=== PATIENT | female | born 1990 | race Caucasian/White ===

== ENCOUNTER 2016-12-30 05:32 | Emergency (ER) | payer OTHER ==
[2016-12-30 05:44] VITALS: BP 115/70; PULSE 115; TEMP 102.5; BMI 20.9
[2016-12-30] MEDS ORDERED: OSELTAMIVIR PHOSPHATE 75 MG CAPSULE ONE (05:46)
[2016-12-30] MEDS ORDERED: AZITHROMYCIN 250 MG TABLET (FP) ONE (05:46)
[2016-12-30] MEDS ORDERED: IBUPROFEN 600 MG TABLET (FP) PO ONE ×2 (05:47→05:50)
[2016-12-30] MEDS ORDERED: OSELTAMIVIR PHOSPHATE 75 MG CAPSULE PO ONE (05:50)
[2016-12-30] MEDS ORDERED: AZITHROMYCIN 250 MG TABLET (FP) PO ONE (05:51)
--- NOTE | 2016-12-30 05:54 | PDOC ---
History of Present Illness - General Chief Complaint: Cold Symptoms Stated Complaint: FEVER, RESPIRATORY Time Seen by Provider: 12/30/16 05:36 History Source: Patient Exam Limitations: Language Barrier - History of Present Illness Initial Comments: 12/30/16 05:49 26yo Female patient with history of Asthma presents to ED c/o high fevers, cough , headache, bodyaches, and sore throat. Patient states her daughter was recently diagnosed with flu by repack room worker. Child was prescribed tamiflu and abx. Patient has been using NyQuil and Advil with little relief. LNMP: Current. Patient denies any other complaints at this time. Timing/Duration: reports: week Severity: reports: moderate Possible Cause: Yes: illness exposure Modifying Factors: worse with: activity, albuterol inhaler, albuterol nebulizer , antibiotics, coughing, lying down, oxygen, rest, other Associated Symptoms: reports: cough, fever/chills, muscle aches, nasal congestion, shortness of breath, sore throat Past History - Travel Traveled outside of the country in the last 30 days: No Close contact w/someone who was outside of country & ill: No - Past Medical History Allergies/Adverse Reactions: Allergies Allergy/AdvReac Type Severity Reaction Status Date / Time Penicillins Allergy Mild Rash Verified 12/30/16 05:34 Home Medications: Ambulatory Orders Albuterol Sulfate Inhaler - [Ventolin HFA Inhaler -] 2 inh IH Q4H PRN #1 inh 06/14 Acetaminophen [Tylenol .Regular Strength -] 650 mg PO Q4H PRN #0 tablet Ibuprofen [Motrin -] 600 mg PO Q4H PRN #30 tablet 03/02/15 Azithromycin [Zithromax -] 250 mg PO DAILY #4 tablet 12/30/16 Oseltamivir Phosphate [Tamiflu -] 75 mg PO BID #10 capsule 12/30/16 Asthma: Yes Cancer: No Cardiac Disorders: No Diabetes: No HTN: No Seizures: No Thyroid Disease: No - Reproductive History (#): 1 Para: 0 - Immunization History Immunization Up to Date: Yes - Psycho/Social/Smoking Cessation Hx Anxiety: No Suicidal Ideation: No Smoking History: Never smoked Have you smoked in the past 12 months: No Number of Cigarettes Smoked Daily: 0 Cigars Per Day: 0 Hx Alcohol Use: No Drug/Substance Use Hx: No Substance Use Type: None Hx Substance Use Treatment: No Respiratory Specific PMHX - Complaint Specific PMHX Angina: No Bronchitis: No Pneumonia: No Pulmonary Embolus: No TB (Tuberculosis): No Review of Systems - Review of Systems Able to Perform ROS?: Yes Is the patient limited [place] proficient: Yes Constitutional: Yes: Fever, Malaise. No: Chills HEENTM: Yes: Throat Pain Respiratory: Yes: Cough, Shortness of Breath. No: Orthopnea, Stridor, Wheezing , Productive cough Cardiac (ROS): No: Chest Pain, Lightheadedness, Palpitations, Syncope, Chest Tightness ABD/GI: No: Diarrhea, Nausea, Vomiting : No: Dysuria Musculoskeletal: Yes: Muscle Pain. No: Back Pain Integumentary: No: Bruising, Erythema, Rash Neurological: Yes: Headache. No: Numbness, Paresthesia, Seizure, Tingling, Tremors, Weakness, Unsteady Gait, Ataxia, Dizziness All Other Systems: Reviewed and Negative *Physical Exam - Vital Signs Last Vital Signs Temp Pulse Resp BP Pulse Ox 102.5 F H 115 H 20 115/70 99 12/30/16 05:41 12/30/16 05:41 12/30/16 05:41 12/30/16 05:41 12/30/16 05:41 - Physical Exam General Appearance: Yes: Nourished, Appropriately Dressed. No: Apparent Distress, Mild Distress, Moderate Distress, Severe Distress HEENT: positive: EOMI, ANAHY, Normal ENT Inspection, Normal Voice, Symmetrical, TMs Normal, Pharynx Normal, Pharyngeal Erythema (Mild). negative: Tonsillar Erythema, Nasal Congestion, Rhinorrhea, TM Bulging, TM Dull, TM Erythema Neck: positive: Trachea midline, Supple. negative: Stridor, Lymphadenopathy (R) , Lymphadenopathy (L) Respiratory/Chest: positive: Lungs Clear, Normal Breath Sounds. negative: Chest Tender, Respiratory Distress, Accessory Muscle Use, Labored Respiration, Rapid RR Cardiovascular: positive: Regular Rhythm, Regular Rate. negative: Edema, JVD, Murmur Gastrointestinal/Abdominal: positive: Normal Bowel Sounds, Soft. negative: Distended, Guarding, Rebound, Tenderness Musculoskeletal: positive: Normal Inspection. negative: CVA Tenderness Extremity: positive: Normal Capillary Refill, Normal Inspection, Normal Range of Motion Integumentary: positive: Normal Color, Dry, Warm. 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 Plan: treat for influenza/bronchitis. Start Tamiflu and Z-arnel. D/c home with rest and increase fluids. *DC/Admit/Observation/Transfer Diagnosis at time of Disposition: Influenza, Bronchitis - Discharge Dispostion Disposition: HOME Condition at time of disposition: Stable Admit: No - Prescriptions Prescriptions: Oseltamivir Phosphate [Tamiflu -] 75 mg PO BID #10 capsule Azithromycin [Zithromax -] 250 mg PO DAILY #4 tablet - Patient Instructions Printed Discharge Instructions: Influenza, DI for Acute Bronchitis Additional Instructions: SEGUIMIENTO CON HOBBS MDICO DE ATENCIN PRIMARIA ESTA SEMANA. LLAMAR PARA CALIFICAR LA BRIAN. JETT MEDICAMENTOS AIDAN SE PRESCRIBE. DESCANSAR, BEBER LOTES DE AGUA O GATORADE. REGRESE SI SINTA LOS SNTOMAS. USTED DEBE HACER TRATAMIENTOS NEBULIZADORES CADA 4-6 HORAS AIDAN SE NECESITAN PARA AYUDAR CON TOSTAR Y RESPIRAR. FOLLOW UP WITH YOUR PRIMARY CARE DOCTOR THIS WEEK. CALL TO SCHEDULE APPOINTMENT. TAKE MEDICATIONS PRESCRIBED. REST, DRINK LOTS OF WATER OR GATORADE. RETURN IF SYMPTOMS WORSEN. YOU SHOULD DO NEBULIZER TREATMENTS EVERY 4- 6 HOUR NEEDED TO HELP WITH COUGHING AND BREATHING. Print Language: TRINIDADIAN - Post Discharge Activity Work/School Note: Back to Work
== END 2016-12-30 06:12 | disposition home or self-care (01) ==
LOC: JER 05:32
DX: J11.1 Influenza due to unidentified influenza virus with other respiratory manifestations (principal); J40 Bronchitis, not specified as acute or chronic
CPT/HCPCS: 99281-25

== ENCOUNTER 2018-12-06 17:44 | Emergency (ER) | payer BC, OTHER ==
[2018-12-06 18:11] VITALS: BP 115/71; PULSE 81; TEMP 97.5; BMI 21.4
--- NOTE | 2018-12-06 18:11 | PDOC ---
Rapid Medical Evaluation Time Seen by Provider: 12/06/18 18:08 Medical Evaluation: Allergies Allergy/AdvReac Type Severity Reaction Status Date / Time Penicillins Allergy Mild Rash Verified 12/06/18 18:08 12/06/18 18:09 Pt presents with 2 weeks of R flank pain. Pain is colicky in nature. Also admits to nausea Exam: TTP R flank, NAD Orders: Labs, urine, Iv Pt to proceed to ED for further evaluation Discharge Disposition - Diagnosis Right flank pain - Referrals - Patient Instructions - Post Discharge Activity
--- NOTE | 2018-12-06 19:15 | PDOC ---
Attending Attestation - HPI HPI: 12/06/18 20:31 The patient is a 28 year old female, with a significant past medical history of , who presents to the emergency department with, 2 weeks of intermittent right flank pain radiating to the front with nausea. Patient endorses an associated 2 days of rectal bleeding upon wiping and constipation. She denies recent fevers, chills, headache or dizziness. She denies recent dysuria, frequency, urgency or hematuria. She denies recent chest pain or shortness of breath. Allergies: Penicillins. - Physicial Exam PE: 12/06/18 20:32 Agree with resident exam. - Medical Decision Making 12/06/18 23:19 EXAM#: TYPE/EXAM: RESULT: [id number] US/TRANSVAGINAL ULTRASOUND US Transvaginal ultrasound Clinical information given: evaluate for torsion The exam was performed utilizing transvaginal as well as transabdominal scanning. The right ovary appears unremarkable. A 1.5 cm left ovarian follicle/cyst is seen. No Doppler evidence of ovarian torsion, sensitivity 70%. The uterus demonstrates no definite abnormality. No free intraperitoneal fluid is identified. Impression : No sonographic abnormality is seen. Reported By: Luis Enrique Bell MD EXAM#: TYPE/EXAM: RESULT: [id number] CT/ABDOMEN PELVIS CT WITH CONTR Abdomen and pelvis CT (with intravenous contrast) Clinical information: right lower quadrant pain, evaluate for appendicitis Multiplanar imaging was performed following the intravenous administration of nonionic contrast. As requested enteric contrast was not administered. Due to a relative paucity of intra- abdominal fat and contiguous and opacified bowel loops the appendix cannot be definitely visualized. No obvious indirect CT signs of acute appendicitis are noted. No gross noncontrast small bowel pathology is visualized. There is no evidence of pneumoperitoneum, abscess, free intraperitoneal fluid or bowel obstruction. Colonic fecal retention is noted which is probably moderate. The liver, spleen, pancreas, gallbladder, adrenal glands and kidneys demonstrate no discrete abnormality. There is no aortic aneurysm. No obvious lymphadenopathy is noted. There is no definite intrapelvic abnormality. A nonspecific 1.2 x 1.1 cm soft tissue focus is seen along the ventral border of the left rectus abdominous muscle at the level of the mid to lower pelvis (transaxial images 100 -103) - ? possible dermoid. Impression: No obvious CT evidence of acute appendicitis as discussed above. If there is ongoing clinical concern additional evaluation utilizing follow-up CT with oral contrast may be considered. A nonspecific 1.2 x 1.1 cm soft tissue focus is noted inseparable from the ventral border of the left rectus abdominis muscle at the level of the mid to lower pelvis possibly representing a dermoid. Reported By: Luis Enrique Bell MD <Chelle Albert - Last Filed: 12/06/18 23:19> - Resident Resident Name: Vipul Wolf - ED Attending Attestation I have performed the following: I have examined & evaluated the patient, The case was reviewed & discussed with the resident, I agree w/resident's findings & plan - Medical Decision Making 12/06/18 23:21 28-year-old female with intermittent right sided flank and abdominal pain Exam produced right lower quadrant tenderness Both pelvic ultrasound and CT scan of the abdomen and pelvis were performed and are noted above Patient is nontoxic-appearing Pelvic exam was unremarkable according to the emergency department resident exam Patient will be discharged home to follow up with her primary care physician including follow-up for outpatient evaluation for trace positive guaiac stools/ possible colonoscopy <Lara Amador - Last Filed: 12/06/18 23:23> Attestations - Attestations 12/06/18 20:32 Documentation prepared by Chelle Albert, acting as medical care administrator for Lara Amador DO. <Chelle Albert - Last Filed: 12/06/18 23:19>
[2018-12-06 19:33] LABS: BASO % 0.4 % (0-2.0); EOS % 0.5 % (0-4.5); HEMATOCRIT 35.8 % (32.4-45.2); HEMOGLOBIN 12.1 GM/dL (10.7-15.3); LYMPH % 45.7 % (8-40); MCH 28.7 pg (25.7-33.7); MCHC 33.8 g/dl (32.0-36.0); MEAN PLT VOLUME 9.2 fl (7.5-11.1); MONO % 4.3 % (3.8-10.2); NEUT % 49.1 % (42.8-82.8); PLATELET COUNT 269 K/MM3 (134-434); RBC 4.21 M/mm3 (3.60-5.2); RDW 13.8 % (11.6-15.6)
[2018-12-06 19:43] LABS: URINE APPEARANCE CLEAR; URINE BILIRUBIN NEGATIVE (<2.0 mg/dL); URINE COLOR STRAW; URINE GLUCOSE (UA) NEGATIVE (NEGATIVE); URINE KETONE NEGATIVE (NEGATIVE); URINE LEUK ESTERASE NEGATIVE (NEGATIVE); URINE NITRITE NEGATIVE (NEGATIVE); URINE PROTEIN NEGATIVE (NEGATIVE); URINE UROBILINOGEN NEGATIVE mg/dL (0.2-1.0)
[2018-12-06 19:44] LABS: HCG,QUALITATIVE URINE Negative
[2018-12-06 20:29] LABS: ALBUMIN 3.9 g/dl (3.4-5.0); ALK PHOS 69 U/L (45-117); ANION GAP 7 MMOL/L (8-16); BILIRUBIN,TOTAL 0.2 mg/dL (0.2-1); BLOOD UREA NITROGEN 12 mg/dL (7-18); CALCIUM 8.6 mg/dL (8.5-10.1); CHLORIDE 104 mmol/L (98-107); CO2 29 mmol/L (21-32); CREATININE 0.6 mg/dL (0.55-1.3); GLUCOSE,RANDOM 99 mg/dL (74-106); POTASSIUM 4.3 mmol/L (3.5-5.1); SGOT/AST 12 U/L (15-37); SGPT/ALT 15 U/L (13-61); SODIUM 140 mmol/L (136-145); TOT PROT 7.1 g/dl (6.4-8.2)
[2018-12-06 20:30] LABS: EPI CELLS RARE /HPF (FEW); URINE MUCUS RARE
--- NOTE | 2018-12-06 22:10 | PDOC ---
History of Present Illness - General Chief Complaint: Pain, Acute Stated Complaint: ABD PAIN/NAUSEA Time Seen by Provider: 12/06/18 18:08 History Source: Patient Exam Limitations: No Limitations - History of Present Illness Initial Comments: 12/06/18 22:11 28 yo F with no past medical history presents to the emergency department with right flank pain that has been ongoing for 2 weeks. Described as an intermittent , sharp pain, radiation to the right groin with associative nausea. In addition , the patient states she has had 2 days of blood on top of the stool that is bright red without melena. Per the patient, she sees the blood when she wipes but denies hx of hemorrhoids. Denies the following: fever, chills, SOB ,chest pain, N/V/D, abdominal pain, dysuria, hematuria, and leg pain/swelling. Denies muscle inciting event and states she has constipation. Allergies: Penicillins. Past History - Past Medical History Allergies/Adverse Reactions: Allergies Allergy/AdvReac Type Severity Reaction Status Date / Time Penicillins Allergy Mild Rash Verified 12/06/18 18:08 Home Medications: Ambulatory Orders Albuterol Sulfate Inhaler - [Ventolin HFA Inhaler -] 2 inh IH Q4H PRN #1 inh 06/14 Acetaminophen [Tylenol .Regular Strength -] 650 mg PO Q4H PRN #0 tablet Ibuprofen [Motrin -] 600 mg PO Q4H PRN #30 tablet 03/02/15 Azithromycin [Zithromax -] 250 mg PO DAILY #4 tablet 12/30/16 Oseltamivir Phosphate [Tamiflu -] 75 mg PO BID #10 capsule 12/30/16 Asthma: Yes Cancer: No Cardiac Disorders: No COPD: No Diabetes: No HTN: No Seizures: No Thyroid Disease: No - Reproductive History (#): 1 Para: 0 - Immunization History Immunization Up to Date: Yes - Suicide/Smoking/Psychosocial Hx Smoking History: Never smoked Have you smoked in the past 12 months: No Number of Cigarettes Smoked Daily: 0 Cigars Per Day: 0 Hx Alcohol Use: No Drug/Substance Use Hx: No Substance Use Type: None Hx Substance Use Treatment: No Review of Systems - Review of Systems Able to Perform ROS?: Yes Is the patient limited [place] proficient: No Constitutional: No: Chills, Diaphoresis, Fever, Weakness HEENTM: No: Eye Pain, Recent change in vision, Ear Pain, Nose Pain, Throat Pain , Mouth Pain Respiratory: No: Cough, Shortness of Breath, SOB with Exertion, Hemoptysis Cardiac (ROS): No: Chest Pain, Lightheadedness, Palpitations, Syncope, Chest Tightness ABD/GI: Yes: Constipated, Nausea. No: Diarrhea, Rectal Bleeding, Vomiting, Tarry Stools : Yes: Flank Pain (right). No: Burning, Dysuria, Hematuria, Urgency Musculoskeletal: No: Back Pain, Joint Pain, Neck Pain Integumentary: No: Bruising, Rash Neurological: No: Headache, Numbness, Tingling, Ataxia Psychiatric: No: Change in Appetite Endocrine: No: Unexplained Weight Gain Hematologic/Lymphatic: No: Anemia *Physical Exam - Vital Signs Last Vital Signs Temp Pulse Resp BP Pulse Ox 97.5 F L 81 18 115/71 99 12/06/18 18:08 12/06/18 18:08 12/06/18 18:08 12/06/18 18:08 12/06/18 18:08 - Physical Exam General Appearance: Yes: Nourished, Appropriately Dressed, Thin. No: Apparent Distress HEENT: positive: EOMI, ANAHY, Normal Voice, Pharynx Normal, Hearing Grossly Normal. negative: Pale Conjunctivae, Scleral Icterus (R), Scleral Icterus (L), Muffled/Hoarse voice, Pharyngeal Erythema, Tonsillar Exudate, Tonsillar Erythema , Nasal Congestion, Rhinorrhea, Sinus Tenderness, Excessive drooling Neck: positive: Trachea midline, Supple. negative: Tender, Lymphadenopathy (R) , Lymphadenopathy (L), Tender lateral, Tender midline Respiratory/Chest: positive: Lungs Clear, Normal Breath Sounds. negative: Chest Tender, Respiratory Distress, Accessory Muscle Use, Rales, Rhonchi, Stridor, Wheezing Cardiovascular: positive: Regular Rhythm, Regular Rate, S1, S2. negative: JVD, Systolic Murmur Female Pelvic Exam: positive: normal external exam, cervical os closed, normal size ovaries, adnexal tenderness (right side). negative: vaginal bleeding Gastrointestinal/Abdominal: positive: Normal Bowel Sounds, Tender (RLQ), Flat, Soft Rectal Exam: positive: normal rectal tone. negative: melena, hemorrhoids Lymphatic: negative: Adenopathy Musculoskeletal: positive: Normal Inspection. negative: CVA Tenderness, Vertebral Tenderness Extremity: positive: Normal Capillary Refill, Normal Inspection, Normal Range of Motion. negative: Tender, Swelling, Calf Tenderness Integumentary: positive: Normal Color, Dry, Warm. 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 negative: EOM Palsy, Facial Droop Moderate Sedation - Procedure Monitoring Vital Signs: Procedure Monitoring Vital Signs Temperature 97.5 F L 12/06/18 18:08 Pulse Rate 81 12/06/18 18:08 Respiratory Rate 18 12/06/18 18:08 Blood Pressure 115/71 12/06/18 18:08 O2 Sat by Pulse Oximetry (%) 99 12/06/18 18:08 ED Treatment Course - LABORATORY CBC & Chemistry Diagram: 12/06/18 19:10 12/06/18 19:10 - ADDITIONAL ORDERS Additional order review: Laboratory Results 12/06/18 12/06/18 19:10 18:55 Sodium 140 Potassium 4.3 Chloride 104 Carbon Dioxide 29 Anion Gap 7 L BUN 12 Creatinine 0.6 Creat Clearance w eGFR > 60 Random Glucose 99 Calcium 8.6 Total Bilirubin 0.2 AST 12 L ALT 15 Alkaline Phosphatase 69 Total Protein 7.1 Albumin 3.9 Urine Color Straw Urine Appearance Clear Urine pH 7.0 Ur Specific [place] 1.006 L Urine Protein Negative Urine Glucose (UA) Negative Urine Ketones Negative Urine Blood 1+ H Urine Nitrite Negative Urine Bilirubin Negative Urine Urobilinogen Negative Ur Leukocyte Esterase Negative Urine WBC (Auto) 1 Urine RBC (Auto) 3 Ur Epithelial Cells Rare Urine Mucus Rare Urine HCG, Qual Negative 12/06/18 19:10 RBC 4.21 MCV 85.0 MCHC 33.8 RDW 13.8 MPV 9.2 Neutrophils % 49.1 D Lymphocytes % 45.7 H D Monocytes % 4.3 Eosinophils % 0.5 Basophils % 0.4 - RADIOLOGY Radiology Studies Ordered: Category Date Time Status ABDOMEN & PELVIS CT WITH CONTR [CT] Stat CT Scan 12/06/18 20:21 Ordered TRANSVAGINAL ULTRASOUND US [US] Stat Ultrasound 12/06/18 20:21 Completed Medical Decision Making - Medical Decision Making 28 yo F with no past medical history presents to the emergency department with right flank pain that has been ongoing for 2 weeks. Initial vitals: Initial Vital Signs Temp Pulse Resp BP Pulse Ox 97.5 F L 81 18 115/71 99 12/06/18 18:08 12/06/18 18:08 12/06/18 18:08 12/06/18 18:08 12/06/18 18:08 Work up: ddx: nephrolithiasis vs pyelonephritis vs UTI vs appendicitis vs ovarian cyst vs ovarian torsion vs ectopic vs msk strain vs cystitis vs cholelithiasis vs cholecystitis Laboratory Tests 12/06/18 12/06/18 12/06/18 18:55 19:10 19:10 WBC 7.0 RBC 4.21 Hgb 12.1 Hct 35.8 D MCV 85.0 MCH 28.7 MCHC 33.8 RDW 13.8 Plt Count 269 MPV 9.2 Absolute Neuts (auto) 3.5 Neutrophils % 49.1 D Lymphocytes % 45.7 H D Monocytes % 4.3 Eosinophils % 0.5 Basophils % 0.4 Nucleated RBC % 0 Sodium 140 Potassium 4.3 Chloride 104 Carbon Dioxide 29 Anion Gap 7 L BUN 12 Creatinine 0.6 Creat Clearance w eGFR > 60 Random Glucose 99 Calcium 8.6 Total Bilirubin 0.2 AST 12 L ALT 15 Alkaline Phosphatase 69 Total Protein 7.1 Albumin 3.9 Urine Color Straw Urine Appearance Clear Urine pH 7.0 Ur Specific [place] 1.006 L Urine Protein Negative Urine Glucose (UA) Negative Urine Ketones Negative Urine Blood 1+ H Urine Nitrite Negative Urine Bilirubin Negative Urine Urobilinogen Negative Ur Leukocyte Esterase Negative Urine WBC (Auto) 1 Urine RBC (Auto) 3 Ur Epithelial Cells Rare Urine Mucus Rare Urine HCG, Qual Negative Stool Occult Blood 12/06/18 22:28 WBC RBC Hgb Hct MCV MCH MCHC RDW Plt Count MPV Absolute Neuts (auto) Neutrophils % Lymphocytes % Monocytes % Eosinophils % Basophils % Nucleated RBC % Sodium Potassium Chloride Carbon Dioxide Anion Gap BUN Creatinine Creat Clearance w eGFR Random Glucose Calcium Total Bilirubin AST ALT Alkaline Phosphatase Total Protein Albumin Urine Color Urine Appearance Urine pH Ur Specific [place] Urine Protein Urine Glucose (UA) Urine Ketones Urine Blood Urine Nitrite Urine Bilirubin Urine Urobilinogen Ur Leukocyte Esterase Urine WBC (Auto) Urine RBC (Auto) Ur Epithelial Cells Urine Mucus Urine HCG, Qual Stool Occult Blood Trace Stool occult was trace. was negative. no elevation in WBC. Transvaginal ultrasound showed left ovarian cyst but no free fluid or signs of torsion. Patient was signed out to Dr. Alaniz *DC/Admit/Observation/Transfer Diagnosis at time of Disposition: Right flank pain - Discharge Dispostion Disposition: HOME Condition at time of disposition: Stable - Referrals Referrals: Moe Jean MD [Staff Physician] - - Patient Instructions Printed Discharge Instructions: DI for Flank Pain Additional Instructions: Please follow up with your primary care physician in 2-3 days. You were found to have trace blood in your stool. Please follow up with a GI doctor. I have put one in the referrals. Please return to the ER if you have any signs or symptoms of chest pain, shortness of breath, uncontrollable fever, chills, nausea, vomiting, numbness, tingling, or weakness in any part of your body, changes in vision, or slurred speech. Please take your medications as prescribed. Please return to the ER if symptoms persist, worsen, or new symptoms arise. - Post Discharge Activity
--- NOTE | 2018-12-06 22:36 | PDOC ---
*Physical Exam - Vital Signs Last Vital Signs Temp Pulse Resp BP Pulse Ox 97.5 F L 81 18 115/71 99 12/06/18 18:08 12/06/18 18:08 12/06/18 18:08 12/06/18 18:08 12/06/18 18:08 ED Treatment Course - LABORATORY CBC & Chemistry Diagram: 12/06/18 19:10 12/06/18 19:10 - ADDITIONAL ORDERS Additional order review: Laboratory Results 12/06/18 12/06/18 19:10 18:55 Sodium 140 Potassium 4.3 Chloride 104 Carbon Dioxide 29 Anion Gap 7 L BUN 12 Creatinine 0.6 Creat Clearance w eGFR > 60 Random Glucose 99 Calcium 8.6 Total Bilirubin 0.2 AST 12 L ALT 15 Alkaline Phosphatase 69 Total Protein 7.1 Albumin 3.9 Urine Color Straw Urine Appearance Clear Urine pH 7.0 Ur Specific [place] 1.006 L Urine Protein Negative Urine Glucose (UA) Negative Urine Ketones Negative Urine Blood 1+ H Urine Nitrite Negative Urine Bilirubin Negative Urine Urobilinogen Negative Ur Leukocyte Esterase Negative Urine WBC (Auto) 1 Urine RBC (Auto) 3 Ur Epithelial Cells Rare Urine Mucus Rare Urine HCG, Qual Negative 12/06/18 19:10 RBC 4.21 MCV 85.0 MCHC 33.8 RDW 13.8 MPV 9.2 Neutrophils % 49.1 D Lymphocytes % 45.7 H D Monocytes % 4.3 Eosinophils % 0.5 Basophils % 0.4 Medical Decision Making - Medical Decision Making 12/06/18 22:35 The patient was signed out to me by Dr. Wolf. The patient is a 28F with no PMH who presents with R colicky pain. CBC, CMP, UA , upreg negative. Pending CTAP. 12/06/18 23:06 CTAP results: Impression: No obvious CT evidence of acute appendicitis as discussed above. If there is ongoing clinical concern additional evaluation utilizing follow-up CT with oral contrast may be considered. A nonspecific 1.2 x 1.1 cm soft tissue focus is noted inseparable from the ventral border of the left rectus abdominis muscle at the level of the mid to lower pelvis possibly representing a dermoid. Will d/c with PCP f/u. *DC/Admit/Observation/Transfer Diagnosis at time of Disposition: Right flank pain - Discharge Dispostion Disposition: HOME Condition at time of disposition: Stable Decision to Admit order: No - Referrals - Patient Instructions Printed Discharge Instructions: DI for Flank Pain Additional Instructions: Please follow up with your primary care physician in 2-3 days. Please return to the ER if you have any signs or symptoms of chest pain, shortness of breath, uncontrollable fever, chills, nausea, vomiting, numbness, tingling, or weakness in any part of your body, changes in vision, or slurred speech. Please take your medications as prescribed. Please return to the ER if symptoms persist, worsen, or new symptoms arise. - Post Discharge Activity
== END 2018-12-06 23:25 | disposition home or self-care (01) ==
LOC: JER 17:44
DX: R10.31 Right lower quadrant pain (principal)
CPT/HCPCS: 36415; 74177-TC; 76830-TC; 80053; 81003; 81015; 82272; 84703; 85025; 87081; 87086; 99283-25

== ENCOUNTER 2019-06-30 12:17 | Emergency (ER) | payer BC ==
[2019-06-30 12:30] VITALS: BMI 21.7
[2019-06-30] MEDS ORDERED: SODIUM CHLORIDE 1,000 ML IV STA (13:00)
[2019-06-30] MEDS ORDERED: DEXAMETHASONE SOD PHOSPHATE 10 MG/1 ML VIAL IVPUSH ONE (13:01)
[2019-06-30] MEDS ORDERED: METOCLOPRAMIDE HCL INJECTION 10 MG/2 ML VIAL IVPB ONE (13:01)
[2019-06-30] MEDS ORDERED: ACETAMINOPHEN 1000 MG/100 ML VIAL (NON FORMULARY) IVPB ONE (13:01)
--- NOTE | 2019-06-30 13:02 | PDOC ---
History of Present Illness - General Chief Complaint: Lightheaded Stated Complaint: DIZZNESS/ LT EYE PAIN/ CONGESTED Time Seen by Provider: 06/30/19 12:51 History Source: Patient Exam Limitations: No Limitations Past History - Travel Traveled outside of the country in the last 30 days: No Close contact w/someone who was outside of country & ill: No - Past Medical History Allergies/Adverse Reactions: Allergies Allergy/AdvReac Type Severity Reaction Status Date / Time Penicillins Allergy Mild Rash Verified 06/30/19 12:28 Home Medications: Ambulatory Orders Albuterol Sulfate Inhaler - [Ventolin HFA Inhaler -] 2 inh IH Q4H PRN #1 inh 06/14 Acetaminophen [Tylenol .Regular Strength -] 650 mg PO Q4H PRN #0 tablet Ibuprofen [Motrin -] 600 mg PO Q4H PRN #30 tablet 03/02/15 Azithromycin [Zithromax -] 250 mg PO DAILY #4 tablet 12/30/16 Oseltamivir Phosphate [Tamiflu -] 75 mg PO BID #10 capsule 12/30/16 Albuterol Sulfate Inhaler - [Ventolin HFA Inhaler -] 1 - 2 inh PO Q4H #1 inhaler 06/30/19 Azithromycin [Zithromax 250mg Tablets -] 250 mg PO UTDICT #6 tab 06/30/19 Fluticasone Prop 0.05% Nasal [Flonase -] 1 - 2 spray NS DAILY #1 spray.pump Ibuprofen 600 mg PO Q6H #30 tablet 06/30/19 Pseudoephedrine HCl 30 mg PO Q8H #21 tablet 06/30/19 Asthma: Yes Cancer: No Cardiac Disorders: No COPD: No Diabetes: No HTN: No Seizures: No Thyroid Disease: No - Reproductive History (#): 1 Para: 0 - Immunization History Immunization Up to Date: Yes - Suicide/Smoking/Psychosocial Hx Smoking History: Never smoked Have you smoked in the past 12 months: No Number of Cigarettes Smoked Daily: 0 Cigars Per Day: 0 Information on smoking cessation initiated: No Hx Alcohol Use: No Drug/Substance Use Hx: No Substance Use Type: None Hx Substance Use Treatment: No Review of Systems - Review of Systems Able to Perform ROS?: Yes Comments:: 06/30/19 14:44 CONSTITUTIONAL: Absent: fever, chills, diaphoresis, generalized weakness, malaise, loss of appetite HEENT: Present: rhinorrhea, nasal congestion, sinus pain Absent: throat pain, throat swelling, difficulty swallowing, mouth swelling, ear pain, eye pain, visual Changes CARDIOVASCULAR: Absent: chest pain, loss of consciousness, palpitations, irregular heart rate, peripheral edema RESPIRATORY: Present: cough, chest tighntess Absent: dyspnea with exertion, orthopnea, wheezing, stridor, hemoptysis GASTROINTESTINAL: Absent: abdominal pain, abdominal distension, nausea, vomiting, diarrhea, constipation, melena, hematochezia GENITOURINARY: Absent: dysuria, frequency, urgency, hesitancy, hematuria, flank pain, genital pain MUSCULOSKELETAL: Absent: myalgia, arthralgia, joint swelling SKIN: Absent: rash, itching, pallor HEMATOLOGIC/IMMUNOLOGIC: Absent: easy bleeding, easy bruising, lymphadenopathy, frequent infections ENDOCRINE: Absent: unexplained weight gain, unexplained weight loss, heat intolerance, cold intolerance NEUROLOGIC: Present: headache Absent: headache, focal weakness or paresthesias, dizziness, unsteady gait, seizure, mental status changes, bladder or bowel incontinence PSYCHIATRIC: Absent: anxiety, depression, suicidal or homicidal ideation, hallucinations. Is the patient limited Green[place]ic proficient: No *Physical Exam - Vital Signs Last Vital Signs Temp Pulse Resp BP Pulse Ox 98.5 F 107 H 17 115/75 100 06/30/19 12:28 06/30/19 12:28 06/30/19 12:28 06/30/19 12:28 06/30/19 12:28 - Physical Exam Comments: 06/30/19 14:47 GENERAL: Well developed, well nourished. Awake and alert. No acute distress. HEENT: Normocephalic, atraumatic. PERRLA, EOMI. No conjunctival pallor. Sclera are non- icteric. Moist mucous membranes. Oropharynx is clear. TTP of the L maxillary sinus. NECK: Supple. Full ROM. No JVD. Carotid pulses 2+ and symmetric, without bruits. No thyromegaly. No lymphadenopathy. CARDIOVASCULAR: Regular rate and rhythm. No murmurs, rubs, or gallops. Distal pulses are 2+ and symmetric. PULMONARY: No evidence of respiratory distress. Lungs clear to auscultation bilaterally with fair aeration to the bases. No wheezing, rales or rhonchi. ABDOMINAL: Soft. Non-tender. Non-distended. No rebound or guarding. No organomegaly. Normoactive bowel sounds. MUSCULOSKELETAL Normal range of motion at all joints. No bony deformities or tenderness. No CVA tenderness. EXTREMITIES: No cyanosis. No clubbing. No edema. No calf tenderness. SKIN: Warm and dry. Normal capillary refill. No rashes. No jaundice. NEUROLOGICAL: Alert, awake, appropriate. Cranial nerves 2-12 intact. No deficits to light touch and temperature in face, upper extremities and lower extremities. No motor deficits in the in face, upper extremities and lower extremities. Normoreflexic in the upper and lower extremities. Normal speech. Toes are down- going bilaterally. Gait is normal without ataxia. PSYCHIATRIC: Cooperative. Good eye contact. Appropriate mood and affect. ED Treatment Course - LABORATORY CBC & Chemistry Diagram: 06/30/19 13:41 06/30/19 13:41 Medical Decision Making - Medical Decision Making 06/30/19 15:54 The patient is a 29 y/o F with PMH of asthma, who presents to the ER today for 1 week of nasal congestion, cough, chest tightness and headache. Pt states she feels like she is having an asthma flare; however, she does not have a rescue inhaler. She also states she has been trying theraflu with little relief of her symptoms. She states her headache is on the L side. Denies fevers, chills, nausea, vomiting, chest pain, palpitations, sore throat, ear ache, shortness of breath. A/P: Sinusitis; asthma flare On exam pt with lungs CTAB, with fair aeration to the bases. Steroids and duonebs ordered TTP of the L maxillary sinus; pt neurologically intact with no focal findings basic labs, migraine cocktail No leukocytosis; H&H stable; CMP grossly normal Pt with relief of symptoms after duonebs, steroids, and migraine cocktail Repeat lung sounds now with good aeration to the bases. DC home with a Z-pack, psudofed, flonase for sinusitis and refill albuterol inhaler Pt to f/u with her PCP I discussed the physical exam findings, ancillary test results and final diagnoses with the patient. I answered all of the patient's questions. The patient was satisfied with the care received and felt comfortable with the discharge plan and treatment plan. The Patient agrees to follow up with the primary care physician/specialist within 24-72 hours. Return precautions were given. *DC/Admit/Observation/Transfer Diagnosis at time of Disposition: Acute maxillary sinusitis Qualifiers: Recurrence: non-recurrent Qualified Code(s): J01.00 - Acute maxillary sinusitis , unspecified Asthma Qualifiers: Asthma severity: mild Asthma persistence: intermittent Asthma complication type : with acute exacerbation Qualified Code(s): J45.21 - Mild intermittent asthma with (acute) exacerbation - Discharge Dispostion Disposition: HOME Condition at time of disposition: Stable Decision to Admit order: No - Prescriptions Prescriptions: Albuterol Sulfate Inhaler - [Ventolin HFA Inhaler -] 1 - 2 inh PO Q4H #1 inhaler Azithromycin [Zithromax 250mg Tablets -] 250 mg PO UTDICT #6 tab Fluticasone Prop 0.05% Nasal [Flonase -] 1 - 2 spray NS DAILY #1 spray.pump Ibuprofen 600 mg PO Q6H #30 tablet Pseudoephedrine HCl 30 mg PO Q8H #21 tablet - Referrals Referrals: Lupe Wallace MD [Primary Care Provider] - Call tomorrow - Patient Instructions Printed Discharge Instructions: DI for Sinusitis Additional Instructions: You have a sinus infection as well and an asthma exacerbation. Please take the medications as prescribed. You were prescribed azithromycin which is an antibiotic. Take it as directed. You may use the inhaler every 4 hours for chest tightness Warm tea and cough drops may also help Follow up with your primary care doctor this week Return to the ER for worsening pain, lightheadedness, vomiting or if you have any changes in your symptoms Magalie tiene coleman infeccin sinusal y coleman exacerbacin del asma. Por favor tome los medicamentos gume se los recetaron. Le recetaron azitromicina, que es un antibitico. Tmelo gume se le indique. Puede usar el inhalador cada 4 horas para opresin en el pecho T caliente y pastillas para la tos kyleebin pueden ayudar Dimitry un seguimiento con garcia mdico de atencin primaria esta semana Regrese a la scottie de emergencias por empeoramiento del dolor, aturdimiento, vmitos o si tiene algn cambio en kylah sntomas. - Post Discharge Activity Forms/Work/School Notes: Back to Work
[2019-06-30] MEDS ORDERED: ALBUTEROL SO4 2.5/IPRATROPIUM 0.5 INH SOL 3 ML VIAL.NEB. NEB ONE ×2 (13:16→14:49)
[2019-06-30] MEDS ORDERED: DEXAMETHASONE SOD PHOSPHATE 10 MG/1 ML VIAL ONE (13:16)
[2019-06-30] MEDS ORDERED: ACETAMINOPHEN INJECTION 100 ML IVPB ONE (13:17)
[2019-06-30] MEDS ORDERED: METOCLOPRAMIDE HCL INJECTION 10 MG/2 ML VIAL ONE (13:17)
[2019-06-30] MEDS: ALBUTEROL SO4 2.5/IPRATROPIUM 0.5 INH SOL 3 ML VIAL.NEB. NEB SCH ×4 (13:31→14:47)
[2019-06-30 13:47] LABS: EOS % 0.5 % (0-4.5); HEMATOCRIT 37.7 % (32.4-45.2); HEMOGLOBIN 12.5 GM/dL (10.7-15.3); LYMPH % 36.9 % (8-40); MCH 28.2 pg (25.7-33.7); MCHC 33.2 g/dl (32.0-36.0); MEAN PLT VOLUME 8.8 fl (7.5-11.1); MONO % 5.1 % (3.8-10.2); NEUT % 56.5 % (42.8-82.8); PLATELET COUNT 292 K/MM3 (134-434); RBC 4.43 M/mm3 (3.60-5.2); RDW 13.9 % (11.6-15.6); WHITE BLOOD COUNT 9.9 K/mm3 (4.0-10.0)
[2019-06-30 14:21] LABS: ALBUMIN 3.7 g/dl (3.4-5.0); BILIRUBIN,TOTAL 0.2 mg/dL (0.2-1); BLOOD UREA NITROGEN 10.1 mg/dL (7-18); CALCIUM 8.7 mg/dL (8.5-10.1); CREATININE 0.6 mg/dL (0.55-1.3); POTASSIUM 4.2 mmol/L (3.5-5.1); TOT PROT 7.1 g/dl (6.4-8.2)
[2019-06-30 15:24] VITALS: BP 100/54; PULSE 100; TEMP 98
== END 2019-06-30 16:00 | disposition home or self-care (01) ==
LOC: JER 12:17
PROC: 3E033NZ Introduction of Analgesics, Hypnotics, Sedatives into Peripheral Vein, Percutaneous Approach (ICD-10-PCS; principal; 2019-06-30)
PROC: 3E0F7GC Introduction of Other Therapeutic Substance into Respiratory Tract, Via Natural or Artificial Opening (ICD-10-PCS; 2019-06-30)
PROC: 3E033GC Introduction of Other Therapeutic Substance into Peripheral Vein, Percutaneous Approach (ICD-10-PCS; 2019-06-30)
PROC: 3E0337Z Introduction of Electrolytic and Water Balance Substance into Peripheral Vein, Percutaneous Approach (ICD-10-PCS; 2019-06-30)
DX: J01.00 Acute maxillary sinusitis, unspecified (principal); J45.21 Mild intermittent asthma with (acute) exacerbation
CPT/HCPCS: 36415; 71046-TC-FY; 80053; 84703; 85025; 99283-25; J0131; J1100; J7030